=== PATIENT | female | born 1990 | race Caucasian/White ===

== ENCOUNTER → 2023-11-25 10:26 | Outpatient (REF) | payer BC, SELFPAY | LOC: HWRAD 10:26 | PROVIDERS: ATTENDING PHYSICIAN Physician Assistant; FAMILY PHYSICIAN Family Medicine | DX: M54.2 Cervicalgia (principal); M54.50 Low back pain, unspecified; R21 Rash and other nonspecific skin eruption; R76.8 Other specified abnormal immunological findings in serum | CPT/HCPCS: 72040; 72072; 72100; 72202 ==

== ENCOUNTER → 2023-12-17 20:33 | Outpatient (REF) | payer BC, SELFPAY | LOC: MRI 3T 20:33 | PROVIDERS: ATTENDING PHYSICIAN Physician Assistant; FAMILY PHYSICIAN Family Medicine | DX: M48.8X6 Other specified spondylopathies, lumbar region (principal); M54.2 Cervicalgia; M54.50 Low back pain, unspecified; R21 Rash and other nonspecific skin eruption; R76.8 Other specified abnormal immunological findings in serum | CPT/HCPCS: 72195 ==